=== PATIENT | male | born 2000 | race Caucasian/White ===

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

== ENCOUNTER 2020-12-24 07:00 | Emergency (ER) | payer OTHER ==
[~2020-12-24] VITALS: Ht 185.4 cm; Wt 86.4 kg
[2020-12-24 07:01] VITALS: BP 134/81; TEMP 97.9
[2020-12-24] MEDS ORDERED: MOTRIN 400400 MG/TAB PO (07:54)
[2020-12-24] MEDS ORDERED: TYLENOL 325MG325 MG PO (07:54)
[2020-12-24 07:56] VITALS: PULSE 78
== END 2020-12-24 08:02 | disposition home or self-care (01) ==
LOC: COL.ER 07:00
DX: S00.83XA Contusion of other part of head, initial encounter (principal); M25.511 Pain in right shoulder; J45.909 Unspecified asthma, uncomplicated; Z79.51 Long term (current) use of inhaled steroids; Y04.0XXA Assault by unarmed brawl or fight, initial encounter; Y92.149 Unspecified place in prison as the place of occurrence of the external cause